=== PATIENT | male | born 1960 | race Caucasian/White ===

== ENCOUNTER → 2022-04-11 | Outpatient (CLI) | payer BC, SELFPAY ==
[2022-04-11 15:11] LABS: Absolute Lymphocyte Count 1.94 X10^3/uL (0.83-4.51); Absolute Neutrophil Count 2.8 X10^3/uL (2.0-7.7); Basophil# 0.04 X10^3/uL; Basophil% 0.8 % (0-1); Eosinophil# 0.15 X10^3/uL; Eosinophils% 2.8 % (0-5); Hematocrit 45.3 % (40-54); Hemoglobin 15.2 g/dL (13.0-16.5); Lymphocyte # 1.94 X10^3/ul (0.83-4.51); Lymphocyte % 36.4 % (19-41); Mean Corp Hgb Conc 33.6 g/dL (32-36); Mean Corpuscular Volume 89.3 fL (80-94); Mean Platelet Vol. 10.1 fl (6.2-12.0); Monocyte# 0.39 X10^3/uL; Monocyte% 7.3 % (0-10); NRBC Flagged by Analyzer 0 % (0-5); Neutrophil % 52.5 % (47-70); Platelet Count 272 K/mm3 (150-450); RBC Distribution Width CV 12.5 % (11.6-14.6); Red Blood Count 5.07 M/mm3 (4.6-6.2); White Blood Count 5.3 K/mm3 (4.4-11.0)
[2022-04-11 16:21] LABS: ALB/GLOB Ratio 1.1 RATIO (0.9-2.4); AST(SGOT) 20 U/L (15-37); Alanine Aminotransfer ALT/SGPT 47 U/L (16-61); Albumin, Serum 4.1 g/dL (3.2-5.0); Alkaline Phosphatase 202 U/L (45-117); Anion Gap 7 (5-15); BUN 12 mg/dL (7-18); BUN/Creat Ratio 12.8 RATIO (10-20); Calcium,Total 9.6 mg/dL (8.5-10.1); Chloride 103 mmol/L (98-107); Cholesterol 103 mg/dL (200); Creatinine, Serum 0.93 mg/dL (0.70-1.30); EST Glomerular Filtration Rate 87 mL/min (>60); Est Glom Filt Rate - Afr Amer 105 mL/min (>60); Globulin 3.7 g/dL (2.2-4.2); Glucose 145 mg/dL (74-106); High Density Lipoprotein 48 mg/dL; PSA,Total- Diagnostic 2.06 ng/mL (0.0-4.0); Potassium 4.2 mmol/L (3.5-5.1); Protein, Total 7.8 g/dL (6.4-8.2); Sodium Level 137 mmol/L (136-145); Triglycerides 103 mg/dL; Very Low Density Lipoprotein 21 mg/dL (5-40)
[2022-04-11 21:08] LABS: Microalbumin,Random Urine 15.1 mg/L (NO RANGE EST.); Microalbumin:Creatinine Ratio 13.5 mg/g CRE (<30 mg/g CRE)
== END | disposition home or self-care (01) ==
LOC: BIMLAB 14:07
PROVIDERS: PCP Internal Medicine; Referring Provider Internal Medicine; Visit Provider Internal Medicine
DX: R97.20 Elevated prostate specific antigen [PSA] (principal); E11.9 Type 2 diabetes mellitus without complications; N40.1 Benign prostatic hyperplasia with lower urinary tract symptoms; R39.14 Feeling of incomplete bladder emptying; Z80.42 Family history of malignant neoplasm of prostate
CPT/HCPCS: 36415; 80053; 80061; 82043; 82570; 84153; 85025

== ENCOUNTER → 2022-05-22 | Outpatient (CLI) | payer BC, SELFPAY ==
[2022-05-22 12:04] LABS: Absolute Lymphocyte Count 2.08 X10^3/uL (0.83-4.51); Absolute Neutrophil Count 2.7 X10^3/uL (2.0-7.7); Basophil# 0.04 X10^3/uL; Basophil% 0.7 % (0-1); Eosinophil# 0.17 X10^3/uL; Eosinophils% 3.2 % (0-5); Hematocrit 45.3 % (40-54); Hemoglobin 15.2 g/dL (13.0-16.5); Lymphocyte # 2.08 X10^3/ul (0.83-4.51); Lymphocyte % 38.8 % (19-41); Mean Corp Hgb Conc 33.6 g/dL (32-36); Mean Corpuscular Hgb 29.9 pg (27.0-32.0); Mean Corpuscular Volume 89.2 fL (80-94); Mean Platelet Vol. 11.2 fl (6.2-12.0); Monocyte# 0.41 X10^3/uL; Monocyte% 7.6 % (0-10); NRBC Flagged by Analyzer 0 % (0-5); Neutrophil # 2.65 X10^3/uL (2.7-7.7); Neutrophil % 49.5 % (47-70); Platelet Count 250 K/mm3 (150-450); RBC Distribution Width CV 12.5 % (11.6-14.6); RBC Distribution Width SD 40.8 fl (35.1-43.9); Red Blood Count 5.08 M/mm3 (4.6-6.2); White Blood Count 5.4 K/mm3 (4.4-11.0)
[2022-05-22 12:19] LABS: International Normalized Ratio 0.9; Prothrombin Time (Protime)PT. 12.2 SECONDS (11.7-14.9)
[2022-05-22 12:28] LABS: ALB/GLOB Ratio 1.3 RATIO (0.9-2.4); AST(SGOT) 33 U/L (15-37); Alanine Aminotransfer ALT/SGPT 59 U/L (16-61); Albumin, Serum 4.4 g/dL (3.2-5.0); Alkaline Phosphatase 195 U/L (45-117); Amylase 57 U/L (25-115); Anion Gap 6 (5-15); BUN 16 mg/dL (7-18); BUN/Creat Ratio 19.5 RATIO (10-20); Calcium,Total 9.9 mg/dL (8.5-10.1); Chloride 105 mmol/L (98-107); Creatinine, Serum 0.82 mg/dL (0.70-1.30); EST Glomerular Filtration Rate 101 mL/min (>60); Est Glom Filt Rate - Afr Amer 122 mL/min (>60); GGTP 83 U/L (15-85); Globulin 3.4 g/dL (2.2-4.2); Glucose 129 mg/dL (74-106); Lipase 161 U/L (73-393); Potassium 4.2 mmol/L (3.5-5.1); Protein, Total 7.8 g/dL (6.4-8.2); Sodium Level 138 mmol/L (136-145)
[2022-05-22 13:14] LABS: Hepatitis B Surface Antigen Non-Reactive (Nonreactive); Hepatitis C Antibody Non-Reactive (Nonreactive)
[2022-05-23 14:50] LABS: Anti-Mitochondrial AB <20.0 Units (0.0-20.0); Anti-Smooth Muscle ABS 5 Units (0-19)
== END | disposition home or self-care (01) ==
LOC: BIMLAB 08:02
PROVIDERS: PCP Internal Medicine; Referring Provider Internal Medicine; Visit Provider Internal Medicine
DX: R17 Unspecified jaundice (principal)
CPT/HCPCS: 36415; 80053; 82150; 82977; 83516; 83690; 85025; 85610; 86803; 87340

== ENCOUNTER → 2022-07-12 | Outpatient (CLI) | payer BC, SELFPAY ==
[2022-07-12 15:29] LABS: ALB/GLOB Ratio 1.2 RATIO (0.9-2.4); AST(SGOT) 25 U/L (15-37); Alanine Aminotransfer ALT/SGPT 55 U/L (16-61); Albumin, Serum 4.3 g/dL (3.2-5.0); Alkaline Phosphatase 208 U/L (45-117); Anion Gap 5 (5-15); BUN 16 mg/dL (7-18); BUN/Creat Ratio 21.1 RATIO (10-20); Calcium,Total 9.9 mg/dL (8.5-10.1); Chloride 105 mmol/L (98-107); Creatinine, Serum 0.76 mg/dL (0.70-1.30); EST Glomerular Filtration Rate 110 mL/min (>60); Est Glom Filt Rate - Afr Amer 133 mL/min (>60); Globulin 3.6 g/dL (2.2-4.2); Glucose 126 mg/dL (74-106); Potassium 4.5 mmol/L (3.5-5.1); Protein, Total 7.9 g/dL (6.4-8.2); Sodium Level 139 mmol/L (136-145)
== END | disposition home or self-care (01) ==
LOC: BIMLAB 14:05
PROVIDERS: PCP Internal Medicine; Referring Provider Internal Medicine; Visit Provider Internal Medicine
DX: R17 Unspecified jaundice (principal)
CPT/HCPCS: 36415; 80053

== ENCOUNTER → 2023-02-26 | Outpatient (CLI) | payer MEDICARE, SELFPAY ==
[2023-02-26 15:57] LABS: Absolute Lymphocyte Count 1.75 X10^3/uL (0.83-4.51); Absolute Neutrophil Count 3.4 X10^3/uL (2.0-7.7); Basophil# 0.03 X10^3/uL; Basophil% 0.5 % (0-1); Eosinophil# 0.11 X10^3/uL; Eosinophils% 1.9 % (0-5); Hematocrit 44.1 % (40-54); Lymphocyte # 1.75 X10^3/ul (0.83-4.51); Lymphocyte % 30.9 % (19-41); Mean Corpuscular Hgb 30.5 pg (27.0-32.0); Mean Corpuscular Volume 89.6 fL (80-94); Mean Platelet Vol. 9.4 fl (6.2-12.0); Monocyte# 0.31 X10^3/uL; Monocyte% 5.5 % (0-10); NRBC Flagged by Analyzer 0 % (0-5); Neutrophil # 3.44 X10^3/uL (2.7-7.7); Neutrophil % 60.8 % (47-70); Platelet Count 266 K/mm3 (150-450); RBC Distribution Width CV 12.6 % (11.6-14.6); Red Blood Count 4.92 M/mm3 (4.6-6.2); White Blood Count 5.7 K/mm3 (4.4-11.0)
[2023-02-26 16:43] LABS: ALB/GLOB Ratio 1.2 RATIO (0.9-2.4); AST(SGOT) 16 U/L (15-37); Alanine Aminotransfer ALT/SGPT 41 U/L (16-61); Albumin, Serum 4.1 g/dL (3.2-5.0); Alkaline Phosphatase 168 U/L (45-117); Anion Gap 7 (5-15); BUN 20 mg/dL (7-18); BUN/Creat Ratio 26.9 RATIO (10-20); CRP < 2.90 mg/L (0.0-3.0); Calcium,Total 9.5 mg/dL (8.5-10.1); Chloride 107 mmol/L (98-107); Creatinine, Serum 0.74 mg/dL (0.70-1.30); EST Glomerular Filtration Rate 112 mL/min (>60); Est Glom Filt Rate - Afr Amer 136 mL/min (>60); Ferritin 91 ng/mL (26-388); Globulin 3.3 g/dL (2.2-4.2); Glucose 114 mg/dL (74-106); LDH 122 U/L (87-241); Protein, Total 7.4 g/dL (6.4-8.2); Sodium Level 142 mmol/L (136-145)
[2023-02-28 00:13] LABS: Erythrocyte Sedimentation Rate 3 mm/hr (0-20)
[2023-03-01 12:09] LABS: Anti-Centromere B Ab <0.2 AI (0.0-0.9); Anti-Chromatin <0.2 AI (0.0-0.9); Anti-Jo <0.2 AI (0.0-0.9); Anti-Scleroderma-70 AB <0.2 AI (0.0-0.9); Anti-dsDNA Ab <1 IU/mL (0-9); RNP Ab 0.3 AI (0.0-0.9); SJOGREN'S Anti-SS-A test < 0.2 AI (0.0-0.9); SJOGREN'S Anti-SS-B test < 0.2 AI (0.0-0.9); Smith Ab <0.2 AI (0.0-0.9); Vitamin D 1,25-Dihydroxy 52.6 pg/mL (24.8-81.5)
[2023-03-03 03:07] LABS: Alkaline Phosphatase, Serum 162 IU/L (44-121); Angiotensin Convert Enzyme 44 U/L (14-82); Bone Fraction 24 % (12-68); Ceruloplasmin 20.9 mg/dL (16.0-31.0); Copper, Serum or Plasma 95 ug/dL (69-132); Cytoplasmic Ab (C-ANCA) 1:20 titer (Neg:<1:20); Haptoglobin 125 mg/dL (32-363); Intestinal Fraction 0 % (0-18); Liver Fraction 75 % (13-88); Perinuclear Ab (P-ANCA) <1:20 titer (Neg:<1:20)
== END | disposition home or self-care (01) ==
LOC: LAB 15:00
PROVIDERS: PCP Internal Medicine; Referring Provider Internal Medicine Gastroenterology; Visit Provider Internal Medicine Gastroenterology
DX: R79.89 Other specified abnormal findings of blood chemistry (principal); K59.00 Constipation, unspecified
CPT/HCPCS: 80053; 80074; 82105; 82140; 82164; 82390; 82525; 82652; 82728; 83010; 83615; 84075; 84080; 85025; 85652; 86140; 86225; 86235; 86256; 86703

== ENCOUNTER → 2023-03-13 | Outpatient (CLI) | payer MEDICARE, SELFPAY ==
--- NOTE | 2023-03-13 07:36 | US_ITS ---
STUDY: ABDOMINAL ULTRASOUND - RIGHT UPPER QUADRANT; ELASTOGRAPHY REASON FOR VISIT: Male, 63 years old. Elevated liver function tests. TECHNIQUE: Ultrasound evaluation of the right upper quadrant was performed with real-time and static plascencia-scale imaging. Point quantification shear wave elastography was performed ([employer]). TECHNICAL QUALITY: Adequate. COMPARISON: None. FINDINGS: Liver: The liver measures 16.3 cm. There is increased echogenicity consistent with fatty infiltration. The bile ducts are within normal limits. There is hepatic color flow. The direction of portal flow is hepatopetal. There is no demonstrated mass lesion. Median liver stiffness measured 8 kPa. Gallbladder: Normal distended gallbladder. The gallbladder wall measures 2.6 mm. There is a negative sonographic Barahona''s sign. There is no pericholecystic fluid. There are no gallstones. Common Bile Duct (C.B.D.): The common bile duct measures 5.0 mm. Pancreas: There is normal echogenicity of the visualized pancreas. There is no demonstrated pancreatic mass or cyst. Right Kidney: Normal size of the right kidney. The right kidney measures 10.7 cm x 6.7 cm x 6 cm. Normal renal cortex. The right cortex measures 1.4 cm. There is a 2 cm x 2.4 cm x 2 cm cyst in the inferior pole right kidney. There is no right hydronephrosis. US/ABD Limited w/ Elastography IMPRESSION: 1. Liver stiffness measures 8 kPa compatible with F2-F3 (Mild to moderate liver fibrosis) Metavir score. Electronically Signed: Ge Ellison MD at 15:42 EDT ,
== END | disposition home or self-care (01) ==
LOC: US 07:34
PROVIDERS: PCP Internal Medicine; Referring Provider Internal Medicine Gastroenterology; Visit Provider Internal Medicine Gastroenterology
DX: R79.89 Other specified abnormal findings of blood chemistry (principal)
CPT/HCPCS: 76705; 76981

== ENCOUNTER 2024-03-14 07:27 | Day surgery (SDC) | payer MEDICARE, SELFPAY ==
[2024-03-14] VITALS (8 sets, daily range): BP systolic 96–131; BP diastolic 72–89; PULSE 74–81; RESP 16–18; TEMP 36.3–36.5; O2SAT 95–97; BMI 28.7
[2024-03-14] MEDS: Lactated Ringers 1,000 ML 15 ML IV (07:56)
--- NOTE | 2024-03-14 08:04 | PCM.PRE.AN2 ---
ASA Classification* ASA Classification ASA Classification: 2 Assessment & Plan Anesthesia* Anesthesia Assessment Anesthesia Assessment: Discussed sedation and/or anesthesia options, risks, benefits, and alternatives with patient/parents/legal guardian/POA. Questions invited. The patient/parents/legal guardian/POA seems to understand and agrees to proceed with anesthesia plan. Reviewed the physical assessment, medical history, allergy history and patient home medications list prior to surgery/procedure/anesthetic and documented any changes. Performed airway and anesthesia risk assessments. Anesthesia Type Anesthesia Type: MAC History Source History Obtained from:: Patient and Chart Anesthesia Focused Assessment* Temperature: 97.3 F Pulse Rate: 77 Blood Pressure: 131/89 Respiratory Rate: 18 Pulse Ox: 97 Oxygen Delivery Method: Room Air Airway Assessment Mouth opens: >3 cm Mallampati Score: III Teeth Condition: Missing (Multiple missing teeth. Poor dentition) Neck Range of motion (ROM): Full ROM Focused Labs Anesthesia Preop lab: CBC WBC 5.7 K/mm3 (4.4-11.0) 02/26/23 15:17 RBC 4.92 M/mm3 (4.6-6.2) 02/26/23 15:17 Hgb 15.0 g/dL (13.0-16.5) 02/26/23 15:17 Hct 44.1 % (40-54) 02/26/23 15:17 Plt Count 266 K/mm3 (150-450) 02/26/23 15:17 CHEMISTRY Potassium 4.0 mmol/L (3.5-5.1) 02/26/23 15:17 Sodium 142 mmol/L (136-145) 02/26/23 15:17 BUN 20 mg/dL (7-18) H 02/26/23 15:17 Creatinine 0.74 mg/dL (0.70-1.30) 02/26/23 15:17 Glucose 114 mg/dL (74-106) H 02/26/23 15:17 COAG PT 12.2 SECONDS (11.7-14.9) 05/22/22 08:03 Pre-Assessment Diagnosis/Proposed Procedure Planned Operative Procedure(s): COLONOSCOPY Anesthesia History Anesthesia History - mechatronics technologist: Anesthesia History - mechatronics technologist Hx Hospitalization No 03/11/24 13:56 Any Problems With Anesthesia No 03/11/24 13:56 Cholinesterase deficiency No 03/11/24 13:56 You/Your Family Experience No 03/11/24 13:56 fever (hyperthermia) with Relationship Recent Exposure to Contagious No 03/14/24 07:44 Disease Does patient have nerve No 03/11/24 13:56 stimulator Patient instructed to have device shut off --Does patient have Pacemaker No 03/14/24 07:44 or ICD? When Was Last Pacemaker Check QUESTION #4 FULL TEXT: You/Your Family Experience fever (hyperthermia) with Anesthesia Last Oral Intake Last Oral intake: Last Oral Intake NPO since 04:30 03/14/24 07:44 Meds taken in AM with sips of No 03/14/24 07:44 water? Meds patient instructed to take am of surgery Any additional information?: Yes NPO since: 04: (Patient finished prep at 4:30 AM) PONV PONV - mechatronics technologist: PONV - mechatronics technologist Female No 03/11/24 13:56 HX of Motion Sickness Yes 03/11/24 13:56 HX of N/V After Surgery No 03/11/24 13:56 Non-Smoker Yes 03/11/24 13:56 Duration of Surgery greater No 03/11/24 13:56 than 60 minutes Number of Risk Factors 2 03/11/24 13:56 PONV Score Moderate Risk 03/11/24 13:56 Height & Weight Height & Weight: Anesthesia: Height & Weight Height 6 ft 03/14/24 07:44 Weight: 96 kg 03/14/24 07:44 Body Mass Index (BMI) 28.7 03/14/24 07:44 Respiratory Assessment Respiratory Assessment - mechatronics technologist: Respiratory Tract Infection Hx - mechatronics technologist Hx Respiratory Tract Infection No 03/11/24 13:56 STOP Sleep Apnea STOP Sleep Apnea - mechatronics technologist: STOP Sleep Apnea - mechatronics technologist Hx Hypertension No 03/11/24 13:56 Hx Sleep Apnea No 03/11/24 13:56 CPAP BIPAP Do you snore loudly (louder No 03/11/24 13:56 than talking or can be heard Do you often feel tired/ No 03/11/24 13:56 fatigued/ sleepy during daytime? Has anyone observed you stop No 03/11/24 13:56 breathing during sleep? STOP Results Negative 03/11/24 13:56 QUESTION #5 FULL TEXT : Do you snore loudly (louder than talking or can be heard through closed doors)? 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 Specify any problems Hx of Preganancy in last 3 N/A 03/11/24 13:56 Months Nurse Filling Out Transfusion [email or web address] 03/11/24 13:56 & Questions: Date: 03/11/24 03/11/24 13:56 Time: 13:58 03/11/24 13:56 Patient unable to answer at this time (ie. confused, unrespo /Reproduction History /Reproductive History - mechatronics technologist: /Reproductive Hx- mechatronics technologist Hx Now Gestational Age (in weeks): EDC: Hx Hx Para Hx Section SAB Active Medications Active Medications: Current Medications Generic Name Dose Route Start Last Admin Trade Name Freq PRN Reason Stop Dose Admin Lactated Ringer's 1,000 mls @ 15 mls/hr 03/14/24 07:45 03/14/24 07:56 IV 15 mls/hr .Q48H CHALINO Administration PFSH Medical History (Updated 03/11/24 @ 14:01 by Kwadwo Ledbetter) Wears glasses Personal history of colonic polyps Flu vaccine need Jaundice Total bilirubin, elevated Hyperlipidemia BPH (benign prostatic hyperplasia) Hypertension Type 2 diabetes mellitus Enlarged prostate Hx of diabetes mellitus Home Medications ?Medication ?Instructions ?Recorded ?Last Taken ?Type finasteride 5 mg tablet 5 mg PO DAILY 04/11/22 Unknown History sildenafil 100 mg tablet 100 mg PO DAILY PRN INTERCOURSE 04/11/22 Unknown History tamsulosin 0.4 mg capsule 0.4 mg PO BID 04/11/22 Unknown History metformin 1,000 mg tablet 1,000 mg PO BID #180 tabs 09/19/22 Unknown Rx atorvastatin 40 mg tablet 40 mg PO DAILY #90 tabs 01/01/23 Unknown Rx empagliflozin 25 mg tablet 25 mg PO DAILY 03/11/24 Unknown History (Jardiance) glimepiride 4 mg tablet 8 mg PO QAM 03/11/24 Unknown History Allergy/AdvReac Type Severity Reaction Status Date / Time No Known Allergies Allergy Verified 03/14/24 07:44 Family History Mother Hypertension Surgical History Hx of prostate biopsy Hx of colonoscopy Social History household members: spouse housing: house current occupational status: retired sexually active: Yes Smoking Status: Former smoker alcohol intake: current alcohol intake frequency: holidays/special occasions only substance use type: does not use and marijuana what type of physical activity do you participate in: none seatbelt use: always do you feel safe at home: Yes Review of Systems (Anesthesia) ROS Narrative System reviewed and no additional complaints, except as documented.
[2024-03-14 08:15] LABS: Bedside Glucose 133 mg/dL (74-106)
--- NOTE | 2024-03-14 08:34 | H&P.OPEN ---
HPI - General HPI Narrative MICA HACKETT, is a 64 M who presents For surveillance colonoscopy. He reports his last colonoscopy was about 7 years ago. At that time polyps were found and removed. He denies abdominal pain or blood in the stool currently. [facility] Medical History (Updated 03/11/24 @ 14:01 by Kwadwo Ledbetter) Wears glasses Personal history of colonic polyps Flu vaccine need Jaundice Total bilirubin, elevated Hyperlipidemia BPH (benign prostatic hyperplasia) Hypertension Type 2 diabetes mellitus Enlarged prostate Hx of diabetes mellitus Home Medications ?Medication ?Instructions ?Recorded ?Last Taken ?Type finasteride 5 mg tablet 5 mg PO DAILY 04/11/22 Unknown History sildenafil 100 mg tablet 100 mg PO DAILY PRN INTERCOURSE 04/11/22 Unknown History tamsulosin 0.4 mg capsule 0.4 mg PO BID 04/11/22 Unknown History metformin 1,000 mg tablet 1,000 mg PO BID #180 tabs 09/19/22 Unknown Rx atorvastatin 40 mg tablet 40 mg PO DAILY #90 tabs 01/01/23 Unknown Rx empagliflozin 25 mg tablet 25 mg PO DAILY 03/11/24 Unknown History (Jardiance) glimepiride 4 mg tablet 8 mg PO QAM 03/11/24 Unknown History Allergy/AdvReac Type Severity Reaction Status Date / Time No Known Allergies Allergy Verified 03/14/24 07:44 Family History Mother Hypertension Surgical History Hx of prostate biopsy Hx of colonoscopy Social History household members: spouse housing: house current occupational status: retired sexually active: Yes Smoking Status: Former smoker alcohol intake: current alcohol intake frequency: holidays/special occasions only substance use type: does not use and marijuana what type of physical activity do you participate in: none seatbelt use: always do you feel safe at home: Yes Past Medical/Surgical History Planned Operation Planned Operative Procedure(s): COLONOSCOPY Previous Hospitalizations/Surgeries HX Hospitalizations: No Any Problems With Anesthesia: No You/Your Family Experience Fever (Hyperthermia) With Anes: No Cholinesterase deficiency: No Cardiovascular Hx Hypertension: No Respiratory Hx Sleep Apnea: No Hx Respiratory Tract Infection/Cold (presently): No Do You Snore Loudly (louder than talking or can be heard): No Do You Often Feel Tired/ Fatigued/ Sleepy Dring Daytime?: No Has Anyone Observed You Stop Breathing During Sleep?: No Result (for STOP score): Negative Smoking Status: Former smoker Neurological Does patient have nerve stimulator: No Miscellaneous Recent Exposure to Contagious Disease: No Allergies No Known Allergies Allergy (Verified 03/14/24 07:44) Discharge After D/C, Where Do you Plan to Go: Return Home Vital Signs Vital Signs Vital Signs: 03/14/24 07:44 03/14/24 07:44 03/14/24 08:11 Temperature 97.3 F L 97.3 F L Temperature Source Temporal Pulse Rate 77 77 Respiratory Rate 18 18 Respiratory Pattern Normal Blood Pressure 131/89 H 131/89 H Blood Pressure Mean 103 Blood Pressure Source Monitor Blood Pressure Position Semi-Fowlers Blood Pressure Location Left Arm Pulse Ox 97 97 Oxygen Delivery Method Room Air Room Air Weight Weight: 211 lb 10.3 oz Body Mass Index (BMI) 28.7 Physical Exam Const alert and oriented x3 HEENT normocephalic Eyes PERRL Resp normal respiratory effort and normal air movement Cardio regular rate and regular rhythm GI soft to palpation, non-tender and non-distended Extremity normal to inspection Assessment & Plan Assessment/Plan (1) Encounter for screening for malignant neoplasm of colon: PLAN: I explained endoscopy in detail to the patient. I explained the risks including but not limited to stroke or heart attack with anesthesia, perforation of the GI tract, bleeding, infection. I explained that any of these could necessitate further emergency surgery. The patient understands and all questions were answered sufficiently. The patient wishes to proceed with procedure. Brian Erickson MD Pager: [facility] [address] [place] [address], [address] [place] [address] Office: Surgery Risks - Colonoscopy Risks Include but are not Limited To: Risks include but are not limited to: Bleeding, perforation requiring further surgery, inability to complete colonoscopy requiring barium enema.
--- NOTE | 2024-03-14 09:00 | OP.COLON_ITS ---
Patient Name: Garrett Mckeon Procedure Date: 03/14/2024 8:35 AM Date of : 1960 Age: 64 Procedure: Colonoscopy Indications: High risk colon cancer surveillance: Personal history of colonic polyps Providers: Brian Erickson MD Referring MD: Linda Oleary MD Medicines: Propofol per Anesthesia Patient Profile: This is a 64 year old male. Refer to note in patient chart for documentation of history and physical. Last Colonoscopy: several years ago. Complications: No immediate complications. Procedure: Pre-Anesthesia Assessment: - Prior to the procedure, a History and Physical was performed, and patient medications and allergies were reviewed. The patient's tolerance of previous anesthesia was also reviewed. The risks and benefits of the procedure and the sedation options and risks were discussed with the patient. All questions were answered, and informed consent was obtained. Prior Anticoagulants: The patient has taken no anticoagulant or antiplatelet agents. After reviewing the risks and benefits, the patient was deemed in satisfactory condition to undergo the procedure. After I obtained informed consent, the scope was passed under direct vision. Throughout the procedure, the patient's blood pressure, pulse, and oxygen saturations were monitored continuously. The pediatric colonoscope was introduced through the anus and advanced to the cecum, identified by appendiceal orifice and ileocecal valve. The colonoscopy was performed without difficulty. The patient tolerated the procedure well. The quality of the bowel preparation was good. The ileocecal valve, appendiceal orifice, and rectum were photographed. Scope In: 8:44:42 AM Scope Withdrawal Time 0 hours 6 minutes 5 seconds Scope Out: 8:55:10 AM Total Procedure Duration Time 0 hours 10 minutes 28 seconds Findings: The entire examined colon appeared normal on direct and retroflexion views. Impression: - The entire examined colon is normal on direct and retroflexion views. - No specimens collected. Recommendation: - Discharge patient to home. - Resume previous diet. - Continue present medications. - Repeat colonoscopy is not recommended due to current age (66 years or older) for screening purposes. Procedure Code(s): --- Professional --- G0105, Colorectal cancer screening; colonoscopy on individual at high risk Diagnosis Code(s): --- Professional --- Z86.010, Personal history of colonic polyps CPT copyright 2021 [employer]. All rights reserved. The codes documented in this report are preliminary and upon manager enrollment review may be revised to meet current compliance requirements. Brian Erickson MD 03/14/2024 8:59:45 AM This report has been signed electronically. Number of Addenda: 0 Note Initiated On: 03/14/2024 8:35 AM
--- NOTE | 2024-03-14 09:00 | OP.CCLET_ITS ---
03/14/2024 Linda Oleary MD [address] [place] [address] Re : Colonoscopy procedure for Garrett Mckeon Dear Dr. Oleary This procedure was performed on Thursday, March 14, 2024. My impressions and recommendations are as follows: Impressions : - The entire examined colon is normal on direct and retroflexion views. - No specimens collected. Recommendations : - Discharge patient to home. - Resume previous diet. - Continue present medications. - Repeat colonoscopy is not recommended due to current age (66 years or older) for screening purposes. My findings are described in the full procedure note, which is enclosed. If I can be of further assistance, please feel free to contact me at Doctor phone number(s): , Work: . Sincerely, Brian Erickson MD 03/14/2024 8:59:45 AM This report has been signed electronically.
--- NOTE | 2024-03-14 09:02 | PCM.POST.ANE ---
Anesthesia: Postop Eval I Current Vital Signs Temperature: 97.7 F Pulse Rate: 76 Blood Pressure: 98/72 Respiratory Rate: 16 Pulse Ox: 96 Oxygen Delivery Method: Room Air Assessment Airway patent: Yes Spontaneous unlabored respirations: Yes Mental status: Asleep nausea: No Vomiting: No Anesthesia Complication: No Fluid Hydration Crystalloid volume administer (ml): 500 Total IV fluid infused: 500 Progress Note Anesthesia document: Postop Eval 1 completed: Yes
--- NOTE | 2024-03-14 14:51 | PCM.POSTANE2 ---
Anesthesia Postop Eval I Sum Postop Eval Completion status Anesthesia document: Postop Eval 1 completed: Yes Anesthesia Postop Eval I Summary Anesthesia Postop Eval I Summary: Anesthesia Postop Eval I: Assessment Summary Airway patent Yes 03/14/24 09:04 [email or web address] Spontaneous unlabored Yes 03/14/24 09:04 [email or web address] respirations Mental status Asleep 03/14/24 09:04 [email or web address] nausea No 03/14/24 09:04 [email or web address] Vomiting No 03/14/24 09:04 [email or web address] Anesthesia Postop Eval I: Fluid Summary Crystalloid volume administer 500 03/14/24 09:04 [email or web address] (ml) Colloids volume administered ( ml) Blood Product volume administered (ml) Total IV fluid infused 500 03/14/24 09:04 [email or web address] Anesthesia Postop Eval I: Summary Notes Anesthesia Complication No 03/14/24 09:04 [email or web address] Anesthesia Complication Comment: Post-operative progress note Anesthesia: Postop Eval II Evaluation Mental status: Awake and Calm Pain Level: 0 nausea: No Vomiting: No Complications Anesthesia Complication: No
== END 2024-03-14 09:35 | disposition home or self-care (01) ==
LOC: EN 07:28 → AC 07:29
PROVIDERS: PCP Internal Medicine; Referring Provider Internal Medicine; Visit Provider Surgery
PROC: 0DJD8ZZ Inspection of Lower Intestinal Tract, Via Natural or Artificial Opening Endoscopic (ICD-10-PCS; CPT 45378; principal; 2024-03-14 08:25)
DX: Z12.11 Encounter for screening for malignant neoplasm of colon (principal); E11.9 Type 2 diabetes mellitus without complications; E78.5 Hyperlipidemia, unspecified; I10 Essential (primary) hypertension; Z87.891 Personal history of nicotine dependence; Z86.010 Personal history of colon polyps; Z79.899 Other long term (current) drug therapy; Z79.84 Long term (current) use of oral hypoglycemic drugs
CPT/HCPCS: G0105; 82962; J7120; J2405